=== PATIENT | female | born 1970 | race Caucasian/White ===

== ENCOUNTER → 2019-07-09 | Outpatient (CLI) | payer OTHER, SELFPAY ==
[2019-07-09 10:40] VITALS: BMI 26.4
--- NOTE | 2019-07-09 10:51 | RAD_ITS ---
STUDY: X-RAY - LEFT KNEE REASON FOR EXAM: Female, 49 years old. Increasing left knee pain. History of giving out. TECHNIQUE: 4 view(s) of the knee. COMPARISON: None. FINDINGS: Normal visualized distal femur. Normal visualized proximal tibia and fibula. Normal proximal tibiofibular articulation. Mild medial compartmental arthrosis. Normal lateral femorotibial compartment. Normal patellofemoral articulation. The soft tissue structures are unremarkable. RAD/Knee 4 or More Views IMPRESSION: Mild medial compartmental arthrosis. Electronically Signed: Kaiser Friedman MD at 11:59 EDT , Service support ,
== END | disposition home or self-care (01) ==
LOC: HPRAD 10:50
PROVIDERS: Referring Provider Orthopaedic Surgery; Visit Provider Orthopaedic Surgery
DX: M25.562 Pain in left knee (principal)
CPT/HCPCS: 73564

== ENCOUNTER 2020-12-12 09:53 | Emergency (ER) | payer SELFPAY ==
[2019-07-09 10:40] VITALS: BMI 26.4
[2020-12-12 09:54] VITALS: BP 171/73; PULSE 91; RESP 16; TEMP 36.2; O2SAT 100; BMI 29.2
--- NOTE | 2020-12-12 10:14 | CT_ITS ---
STUDY: CT BRAIN WITHOUT CONTRAST REASON FOR EXAM: Female, 50 years old. Left arm weakness, fever RADIATION DOSAGE (If Supplied By Facility): CTDIvol = ( 44.99 ) mGy, DLP = ( 779.24 ) mGycm TECHNIQUE: Transaxial CT imaging of the brain was performed without administration of intravenous contrast material. Individualized dose optimization techniques were used for this CT. COMPARISON: No relevant priors. FINDINGS: Normal soft tissue structures. Normal calvarium. Normal size ventricles and extra-axial spaces for the patient''s age. Normal white matter tracts of the cerebral hemispheres. Normal basal ganglia and thalami. Normal brainstem. Normal cerebellum. There is no intracranial hemorrhage. There are no findings of an acute ischemic infarction. Normal visualized paranasal sinuses. CT/Brain/Head without Contrast IMPRESSION: Normal unenhanced CT scan of the brain. Electronically Signed: Janes Alexandra MD at 10:47 EST , Service support ,
--- NOTE | 2020-12-12 10:14 | CT_ITS ---
STUDY: CT CERVICAL SPINE WITHOUT CONTRAST REASON FOR EXAM: Female, 50 years old. LT ARM WEAKNESS, N/T, back fusion 1 yr ago RADIATION DOSAGE (If Supplied By Facility): CTDIvol = ( 21.75 ) mGy, DLP = ( 511.97 ) mGycm TECHNIQUE: High resolution transaxial imaging was performed without contrast material. Sagittal and coronal images were reconstructed. Individualized dose optimization techniques were used for this CT. COMPARISON: None FINDINGS: Cervical lordosis reversal. No significant scoliosis. Multilevel endplate spondylosis predominating at C4-5, C5-6 and C6-7. Multiple level disc/osteophyte complexes with central canal narrowing at C4-5, C5-6 and C6-7. Multilevel moderate/severe neural foraminal narrowing. Multilevel facet joint arthrosis most severe at C4-5. Minimal grade 1 spondylolisthesis at C4-5 and C5-6. Craniocervical and atlantoaxial articulations intact. Odontoid intact. No acute cervical spine fracture, dislocation or osseous destruction. Symmetric mastoid air cells. Skull base intact. Visualized clavicles intact. Visualized ribs intact. Normal lung apices. No acute soft tissue process. Normal thyroid. CT/Spine Cervical without Contras IMPRESSION: Cervical spine intact Cervical straightening with degenerative changes predominating at C4-5, C5-6 and C6-7 Electronically Signed: Ron Martinez DO at 10:55 EST Tel , Service support ,
--- NOTE | 2020-12-12 10:15 | ED.VISSUMM ---
- ER Visit Summary Date of Service: 12/12/20 Chief Complaint: Left arm and bilateral lower extremity weakness History of Present Illness: The patient is a 50 F who presents with weakness to her left arm and some mild weakness to both lower extremities that has gradually been getting worse over the past 2 months. Patient states she is having difficulty lifting her left arm. Patient admits to some numbness and tingling in her left arm. Patient states she has also been falling frequently due to the weakness in her legs. Patient had surgery on her lumbar spine several months ago but states she has degenerative disc disease in all areas of her spine. Patient states her weakness is worse with cold but better with heat. Patient denies any headaches or visual changes. Patient denies any chest pain or shortness of breath. Physical Examination: Vital signs are stable. Patient is afebrile. Patient is in no acute distress. Cranial nerves II through XII are intact. Strength is 4/5 in flexion of the left shoulder. Political Anthropologist strengths are equal bilaterally. Bicep and tricep is equal bilaterally. Strength is 5/5 bilaterally in the lower extremities. Oral mucosa is pink and moist. Neck is supple. Trachea is midline. There is no JVD. Heart was regular rate and rhythm. Lungs are clear and equal bilaterally. Abdomen is soft. Bowel sounds are normal. There is no tenderness. Incision over the lumbar spine is healing well. There are no signs of infection. Test Results: CBC and comprehensive metabolic profile were obtained were within normal limits. CT scan of the brain was obtained. There is no acute intracranial abnormality. CT scan of the cervical spine was obtained. There are degenerative changes noted at C4-5, C5-6, and C6-7. There is no fracture or spondylolisthesis noted. There is mild straightening of the cervical spine. This was interpreted by the radiologist and reviewed by myself. Emergency Department Course and Treatment: Patient was started on prednisone here. Patient was given a prescription for prednisone. Patient was instructed to follow-up with her primary care physician and neurosurgeon in 3 to 5 days. Patient understood and was agreeable with the plan. All questions were answered. Disposition: Discharge home Impression: Left arm paresthesias and weakness This note was generated with Veysoftation software. It may contain incorrect words, spelling, and punctuation that were not noted in review of the chart prior to signing ED Disposition - Plan for ED Patient: Disposition: Home or Assisted Living Diagnosis: Paresthesia of left upper extremity Instructions: ED Weakness (Uncertain Cause), ED Paraesthesias Prescriptions: predniSONE tablet 60 mg PO DAILY #12 tab Transmission Status: Pending to [facility] Referrals: Pilo Salguero MD [Primary Care Provider] - 3-5 Days
[2020-12-12 10:31] LABS: Absolute Neutrophil Count 6.8 X10^3/uL (2.0-7.7); Basophil# 0.06 X10^3/uL; Basophil% 0.7 % (0-1); Hematocrit 41.8 % (37-47); Hemoglobin 13.8 g/dL (12.0-15.0); Mean Corpuscular Hgb 31.9 pg (27.0-32.0); Mean Corpuscular Volume 96.8 fL (81-99); Mean Platelet Vol. 11.3 fl (6.2-12.0); Monocyte# 0.47 X10^3/uL; Monocyte% 5.4 % (0-10); NRBC Flagged by Analyzer 0 % (0-5); Neutrophil # 6.79 X10^3/uL (2.7-7.7); Neutrophil % 77.7 % (47-70); Platelet Count 347 K/mm3 (150-450); RBC Distribution Width CV 13.2 % (11.6-14.6); RBC Distribution Width SD 47.1 fl (35.1-43.9); Red Blood Count 4.32 M/mm3 (4.2-5.4); White Blood Count 8.7 K/mm3 (4.4-11.0)
[2020-12-12 10:49] LABS: AST(SGOT) 15 U/L (15-37); Alanine Aminotransfer ALT/SGPT 24 U/L (13-56); Alkaline Phosphatase 116 U/L (45-117); Anion Gap 3 (5-15); BUN 14 mg/dL (7-18); BUN/Creat Ratio 16.6 RATIO (10-20); Calcium,Total 9.5 mg/dL (8.5-10.1); Chloride 111 mmol/L (98-107); Creatinine, Serum 0.84 mg/dL (0.55-1.02); EST Glomerular Filtration Rate 76 mL/min (>60); Est Glom Filt Rate - Afr Amer 92 mL/min (>60); Estimated Creatinine Clearance 70.73 ml/min; Globulin 4.1 g/dL (2.2-4.2); Glucose 103 mg/dL (74-106); Potassium 3.8 mmol/L (3.5-5.1); Protein, Total 8.1 g/dL (6.4-8.2); Sodium Level 141 mmol/L (136-145)
[2020-12-12] MEDS: predniSONE 20 MG Tablet 60 MG PO (11:34)
[2020-12-12 11:37] VITALS: PULSE 71; RESP 17; O2SAT 98
--- NOTE | 2020-12-12 11:37 | ED.RN ---
IV DC'ED, CATHETER INTACT, SMALL GAUZE DRESSING PLACED. DISCHARGE INSTRUCTIONS GIVEN TO AND REVIEWED WITH PATIENT, PATIENT DENIES QUESTIONS OR CONCERNS AND VOICES UNDERSTANDING OF DISCHARGE INSTRUCTIONS. PT AMBULATES OUT OF ROOM WITHOUT DIFFICULTY.
== END 2020-12-12 11:38 | disposition home or self-care (01) ==
PROVIDERS: Emergency Provider Emergency Medicine; PCP Family Medicine
DX: R20.2 Paresthesia of skin (principal); R53.1 Weakness; Z72.0 Tobacco use
CPT/HCPCS: 70450; 72125; 80053; 85025; 99285; A4216

== ENCOUNTER 2021-10-22 01:44 | Emergency (ER) | payer SELFPAY ==
[2021-10-22 01:45] VITALS: BP 171/93; PULSE 102; RESP 18; TEMP 35.9; O2SAT 99
--- NOTE | 2021-10-22 01:56 | EX.ED.VIS.UR ---
HPI HPI - URI History of Present Illness Chief Complaint: Sore Throat Informant: patient Onset/Context/Timing Onset: Today Context: Gradual Onset Timing: Continuous Quality: sore Location: mouth/throat/tongue Current Severity: Moderate Maximum Severity: Moderate Worsened by: Swallowing Relieved by: - (nothing but hasn't tried anything) Associated Symptoms Associated Symptoms: Positive for - (rash on hands) Narrative Narrative: Patient has had a red rash in her hands for couple days without a known cause, it itches sometimes, she saw her PCP and as result was put on an antibiotic and prednisone although she has not started it yet. Tonight she noticed that her throat, mouth, tongue are sore, she notes yellow blisters, black spots, white spots, she actually keeps changing the description the longer she talks about it, she states that she is very nervous about it, feels like things are swelling and wanted to have it looked at before her throat swelled shot. She states she developed a rash on her neck, now it is on her chest and face, it is red but asymptomatic, she states this is what happens when she is nervous. Blood pressure is also elevated which she thinks is because she is nervous as well. ROS ROS ED Constitutional Constitutional ED: Denies chills or fever(s) Eyes Eyes: Denies blurry vision, change in vision or diplopia ENT ENT ED: Reports as per HPI, mouth lesions, mouth pain and sore throat; Denies ear pain, loss taste/smell or rhinorrhea Cardiovascular Cardiovascular: Denies chest pain or palpitations Respiratory/Chest Respiratory/Chest: Denies cough or dyspnea Gastrointestinal Gastrointestinal: Denies abdominal pain, diarrhea, nausea or vomiting Genitourinary Genitourinary ED: Denies dysuria or hematuria Musculoskeletal Musculoskeletal: Denies arthralgias, back pain, myalgias or neck pain Integumentary Reports as per HPI and rash; Denies abscess or Abrasions Neurologic Neurologic: Denies headache(s), paresthesias or weakness Psychiatric Psychiatric: Reports anxiety; Denies depression or suicidal thoughts [facility] Medical History Fusion of lumbar spine Home Medications escitalopram oxalate 20 mg PO DAILY 06/01/17 [History Last Taken Unknown] prednisone 60 mg PO DAILY #12 tab 01/22/21 [Rx Last Taken Unknown] Allergy/AdvReac Type Severity Reaction Status Date / Time morphine Allergy Itching Verified 12/12/20 09:53 Social History Smoking Status: Current every day smoker tobacco type: cigarettes EXAM Physical Exam Const Vital Signs: 10/22/21 01:45 Temperature 96.6 F L Temperature Source Temporal Pulse Rate 102 H Respiratory Rate 18 Blood Pressure 171/93 H Blood Pressure Mean 119 Pulse Ox 99 Oxygen Delivery Method Room Air Positive well nourished and well developed General Appearance ED: well developed and NAD HEENT HEENT Narrative: No stridor or trismus. No secretions. Oral mucous membranes moist. Small aphthous ulcer right lateral tongue. No other abnormal lesions throughout the posterior oropharynx, buccal mucosa, sublingual, Stensen's ducts are normal without discharge, and gingiva normal except for a decayed left mandibular molar without associated abscess. normocephalic and atraumatic Face and Sinus: Negative for facial tenderness Throat: posterior oropharynx normal Eyes PERRL and EOMs intact bilaterally Neck no lymphadenopathy, supple and no meningeal signs Neck Narrative: Flushed throughout face, neck, upper chest General: Negative for anterior neck swelling Resp normal respiratory effort Psych Attitude: No agitated Mood & Affect: anxious Skin Skin Narrative: Nontender nonraised macular erythematous rash dorsum of both hands and wrists. I do not see any on the palms. MDM MDM MDM Narrative Medical decision making narrative: I reassured this patient, her oropharyngeal exam is almost completely normal except for the aphthous ulcer I see on the side of her tongue. I think she was looking at Stensen's ducts bilaterally and concerned about those as well as what appears to me as a normal posterior oropharynx. She also has fairly normal-appearing sublingual area, but she was looking at areas she was concerned about which are part of normal sublingual anatomy including the submandibular ducts which also appear normal. There is no fullness. The tongue other than the aphthous ulcer, is normal-appearing. Patient was very anxious and moving her tongue all around, fingers in her mouth, limiting exam off and on but I see nothing remarkable about her throat. Differential here includes oewk-ycxg-ywb-mouth disease/coxsackie infection, other viral forms of pharyngitis, insect bites in her hands, allergic dermatitis. Steroids sometimes can help viral pharyngitis, she states her doctor already prescribed them and she just needs to fill and take them. She is reassured and states that she is okay going home and does not want any further testing. Advised to have her blood pressure rechecked in the near future. Discharge Plan Triage Chief Complaint: Sore Throat ED Provider: Sabino Banuelos Dx/Rx/DC Orders Clinical Impression: Acute viral pharyngitis, Ulcer aphthous oral Instructions: ED Canker Sore Prescriptions: No Action escitalopram oxalate 20 MG tablet 20 mg PO DAILY RF: 0 prednisone 20 MG tablet 60 mg PO DAILY Qty: 12 RF: 0 Primary Care Provider: Pilo Salguero Referrals: Pilo Salguero MD [Primary Care Provider] - 1 Week if not improving Disposition Disposition: Home, Self Care
== END 2021-10-22 02:07 | disposition home or self-care (01) ==
PROVIDERS: Emergency Provider Emergency Medicine; PCP Family Medicine
DX: K12.0 Recurrent oral aphthae (principal); J02.8 Acute pharyngitis due to other specified organisms; B97.89 Other viral agents as the cause of diseases classified elsewhere; F17.210 Nicotine dependence, cigarettes, uncomplicated
CPT/HCPCS: 99282

== ENCOUNTER 2021-12-07 18:13 | Emergency (ER) | payer MEDICAID, SELFPAY ==
[2021-12-07 18:14] VITALS: PULSE 118; RESP 18; TEMP 36.7; O2SAT 97; BMI 26.6
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
[2021-12-07 18:28] VITALS: BP 126/71; PULSE 99; RESP 18; O2SAT 96
[2021-12-07] MEDS: Ketorolac 60 MG/2 ML Vial IM (18:28)
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
[2021-12-07] MEDS: HYDROmorphone 0.5 MG/0.5 ML SYRINGE IM (20:25)
== END 2021-12-07 20:55 | disposition home or self-care (01) ==
PROVIDERS: Emergency Provider Emergency Medicine; PCP Family Medicine; Visit Provider Emergency Medicine
DX: S82.832A Other fracture of upper and lower end of left fibula, initial encounter for closed fracture (principal); X50.1XXA Overexertion from prolonged static or awkward postures, initial encounter; Y93.02 Activity, running; F17.210 Nicotine dependence, cigarettes, uncomplicated
CPT/HCPCS: 29515; 73610; 96372; 99284